=== PATIENT | female | born 1990 | race Caucasian/White ===

== ENCOUNTER 2023-01-10 15:46 | Emergency (ER) | payer MEDICAID, SELFPAY ==
[2023-01-10] VITALS (9 sets, daily range): BP systolic 128–186; BP diastolic 70–107; PULSE 110; RESP 18; TEMP 36.9; O2SAT 97–100; BMI 31.1
--- NOTE | 2023-01-10 16:13 | ED.ABDPAIN1 ---
Documented by User: Ema Her MD 01/12/23 08:43 HPI - Abdominal Pain General Chief Complaint: Abdominal Pain Stated Complaint: abdominal pain and vomitting Time Seen by Provider: 01/10/23 16:13 Source: patient Mode of arrival: walk-in Limitations: no limitations History of Present Illness HPI narrative: pt presents emergency department complaining of abdominal pain. Patient states she's had pain in her left upper quadrant for 3 days. She has been vomiting as dry heaving and is unable to keep anything down. She denies any hematemesis. She denies any diarrhea. She has Zofran at home took one this morning and is still nauseated. She denies any fever, chills, cough, chest pain, shortness of breath. She denies any flank pain, hematuria, dysuria. She denies any vaginal bleeding, discharge. Patient states it feels like when she had to have her gallbladder taken out. She called her primary care doctor and was told to come to the emergency department. She denies any trauma. Related Data Home Medications Medication Instructions Recorded Confirmed cholecalciferol (vitamin D3) 25 50 mcg PO DAILY 01/10/23 01/10/23 mcg (1,000 unit) tablet escitalopram oxalate 10 mg tablet 10 mg PO DAILY 01/10/23 01/10/23 hydroxyzine HCl 25 mg tablet 25 mg PO Q6H PRN anxiety 01/10/23 01/10/23 lamotrigine 25 mg tablet 25 mg PO .hs 01/10/23 01/10/23 ondansetron 4 mg disintegrating 4 mg PO Q6H PRN nausea and vomiting 01/10/23 01/10/23 tablet oxycodone 10 mg tablet 10 mg PO Q6H PRN pain 01/10/23 01/10/23 Allergies Allergy/AdvReac Type Severity Reaction Status Date / Time codeine Allergy Intermediate Verified 01/10/23 15:53 Penicillins Allergy Intermediate Verified 01/10/23 15:53 topiramate [From Topamax] Allergy Intermediate Verified 01/10/23 15:53 Review of Systems ROS Status of ROS 10 or more systems reviewed and unremarkable except as noted in history and below PFSH PFSH Social History Smoking status: Current every day smoker Exam Narrative Exam Narrative: Nurses notes and vital signs reviewed and patient is not hypoxic. General: Nontoxic, Well-appearing and in no apparent distress. Skin: Warm, dry, no pallor noted. No Rash Head: Normocephalic, atraumatic. Neck: Supple, non-tender. Eye: Pupils are equal, round and EOMI. No scleral icterus. Ears, Nose, Mouth, and Throat: TM clear, no posterior oropharynx erythema or nasal mucosal hypertrophy, uvula is mid-line Oral mucosa is moist Cardiovascular: Regular Rate and Rhythm without murmur, gallop or rub. Respiratory: No accessory muscle use or respiratory distress. Lungs are clear to auscultation, no wheezing, rales or rhonchi Chest Wall: no tenderness Back: No midline thoracic or lumbar vertebral tenderness. No CVA tenderness Musculoskeletal: normal ROM, no calf or popliteal tenderness, no lower extremity edema/swelling GI: Abdomen is soft, non-distended. Normal bowel sounds. No masses appreciated.) Mild left upper quadrant tenderness to palpation. No rebound, guarding, or rigidity noted. Neurological: A&O x4. No cranial nerve dysfunction observed. No truncal ataxia. Moves all extremities. Sensation intact. Psychiatric: Cooperative and interactive. Normal mood and affect. Constitutional Vital Signs - 24 hr 01/10/23 15:53 01/10/23 17:21 01/10/23 17:22 Temperature 98.5 F Pulse Rate [Monitor] 110 H Respiratory Rate 18 Blood Pressure 143/87 H Blood Pressure [Left Arm] 135/99 H Pulse Oximetry 98 99 100 Oxygen Delivery Method Room Air 01/10/23 17:22 01/10/23 17:30 01/10/23 18:00 Temperature Pulse Rate [Monitor] Respiratory Rate Blood Pressure 143/87 H 134/93 H 134/70 H Blood Pressure [Left Arm] Pulse Oximetry 99 100 99 Oxygen Delivery Method 01/10/23 18:31 01/10/23 19:01 01/10/23 19:30 Temperature Pulse Rate [Monitor] Respiratory Rate Blood Pressure 186/107 H 139/78 H 148/80 H Blood Pressure [Left Arm] Pulse Oximetry 97 98 98 Oxygen Delivery Method 01/10/23 20:01 Temperature Pulse Rate [Monitor] Respiratory Rate Blood Pressure 128/77 H Blood Pressure [Left Arm] Pulse Oximetry 98 Oxygen Delivery Method Course Vital Signs Vital signs: Vital Signs Temperature 98.5 F 01/10/23 15:53 Pulse Rate 110 H 01/10/23 15:53 Respiratory Rate 18 01/10/23 15:53 Blood Pressure 135/99 H 01/10/23 15:53 Pulse Oximetry 98 01/10/23 15:53 Oxygen Delivery Method Room Air 01/10/23 15:53 Temperature 98.5 F 01/10/23 15:53 Pulse Rate 110 H 01/10/23 15:53 Respiratory Rate 18 01/10/23 15:53 Blood Pressure 128/77 H 01/10/23 20:01 Pulse Oximetry 98 01/10/23 20:01 Oxygen Delivery Method Room Air 01/10/23 15:53 MDM - Abdominal Pain MDM Narrative Medical decision making narrative: The patient had an IV established. She was given 1 L of normal saline, 4 mg of morphine, and 4mg of zofran. Labs and CT studies are pending. She is nontoxic. Lab Data Labs: Lab Results 01/10/23 01/10/23 Range/Units 16:05 16:27 WBC 9.3 (4.0-11.0) 10^3/uL RBC 4.67 (4.20-5.40) 10^6/uL Hgb 14.2 (12.0-16.0) g/dL Hct 42.9 (36.0-48.0) % MCV 91.9 (81.0-99.0) fL MCH 30.4 (26.7-34.0) pg MCHC 33.1 (29.9-35.2) g/dL RDW 13.2 (11.0-15.0) % Plt Count 290 (150-450) 10^3/uL MPV 9.1 L (9.5-13.5) fL Neut % (Auto) 72.0 (43.0-75.0) % Lymph % (Auto) 20.0 L (20.5-60.0) % [place] % (Auto) 5.1 (1.7-12.0) % Eos % (Auto) 2.3 (0.9-7.0) % Baso % (Auto) 0.3 (0.2-2.0) % Neut # (Auto) 6.7 H (1.4-6.5) 10^3/uL Lymph # (Auto) 1.9 (1.2-3.8) 10^3/uL [place] # (Auto) 0.5 (0.3-0.8) 10^3/uL Eos # (Auto) 0.2 (0.0-0.7) 10^3/uL Baso # (Auto) 0.0 (0.0-0.1) 10^3/uL Abs Immat Gran (auto) 0.03 (0.00-0.03) 10^3/uL Imm/Tot Granulo (auto) 0.3 (0.0-0.5) % Sodium 140 (136-145) mmol/L Potassium 4.1 (3.5-5.1) mmol/L Chloride 104 (98-107) mmol/L Carbon Dioxide 24.6 (21.0-32.0) mmol/L Anion Gap 15.5 BUN 21.0 H (7.0-18.0) mg/dL Creatinine 1.03 H (0.55-1.02) mg/dL Est GFR ( Amer) >60 (>=60) Est GFR (Non-Af Amer) >60 (>=60) BUN/Creatinine Ratio 20.4 Glucose 98 (74-106) mg/dL Calcium 9.5 (8.5-10.1) mg/dL Total Bilirubin 0.3 (0.2-1.0) mg/dL AST 10 L (15-37) U/L ALT 21 (14-59) U/L Alkaline Phosphatase 101 (46-116) U/L Total Protein 7.1 (6.4-8.2) g/dL Albumin 3.8 (3.4-5.0) g/dL Globulin 3.3 g/dL Albumin/Globulin Ratio 1.2 Lipase 166.0 (73.0-393.0) U/L Urine Color Yellow (YELLOW) Urine Clarity Clear (CLEAR) Urine pH 6.5 (5.0-9.0) Ur Specific [place] 1.010 (1.005-1.025) Urine Protein Negative (NEG/TRACE) mg/dL Urine Glucose (UA) Negative (NEGATIVE) mg/dL Urine Ketones Negative (NEGATIVE) mg/dL Urine Occult Blood Negative (NEGATIVE) Urine Nitrite Negative (NEGATIVE) Urine Bilirubin Negative (NEGATIVE) Urine Urobilinogen 0.2 (0.2-1.0) EU/dL Ur Leukocyte Esterase Negative (NEGATIVE) Discharge Plan Discharge Chief Complaint: Abdominal Pain Clinical Impression: Colitis, Nausea and vomiting Patient Disposition: Home, Self-Care Condition: Good Mode of Transportation: Private Vehicle Prescriptions / Home Meds: No Action cholecalciferol (vitamin D3) 25 mcg (1,000 unit) tablet 50 mcg PO DAILY escitalopram oxalate 10 mg tablet 10 mg PO DAILY hydroxyzine HCl 25 mg tablet 25 mg PO Q6H PRN (Reason: anxiety) lamotrigine 25 mg tablet 25 mg PO .hs ondansetron 4 mg tablet,disintegrating 4 mg PO Q6H PRN (Reason: nausea and vomiting) oxycodone 10 mg tablet 10 mg PO Q6H PRN (Reason: pain) Print Language: Ethiopian Instructions: Acute Nausea and Vomiting (ED), Colitis (ED) Additional Instructions: Reglan: 1 tablet every 8 hours as needed for nausea/vomiting Stand Alone Forms: Portal Instructions Referrals: DARA JIMENES [Primary Care Provider] - 1 week (follow up with your family doctor in 1-2 days. Return if vomiting not controlled) Follow Up Appointments: follow up with your family doctor in 1-2 days. Return if vomiting not controlled Discharge Date/Time: 01/10/23 21:47 Documented by User: Juan Carlos Resendiz MD 01/10/23 21:07 HPI - Abdominal Pain General Chief Complaint: Abdominal Pain Stated Complaint: abdominal pain and vomitting Time Seen by Provider: 01/10/23 16:13 Related Data Home Medications Medication Instructions Recorded Confirmed cholecalciferol (vitamin D3) 25 50 mcg PO DAILY 01/10/23 01/10/23 mcg (1,000 unit) tablet escitalopram oxalate 10 mg tablet 10 mg PO DAILY 01/10/23 01/10/23 hydroxyzine HCl 25 mg tablet 25 mg PO Q6H PRN anxiety 01/10/23 01/10/23 lamotrigine 25 mg tablet 25 mg PO .hs 01/10/23 01/10/23 ondansetron 4 mg disintegrating 4 mg PO Q6H PRN nausea and vomiting 01/10/23 01/10/23 tablet oxycodone 10 mg tablet 10 mg PO Q6H PRN pain 01/10/23 01/10/23 Allergies Allergy/AdvReac Type Severity Reaction Status Date / Time codeine Allergy Intermediate Verified 01/10/23 15:53 Penicillins Allergy Intermediate Verified 01/10/23 15:53 topiramate [From Topamax] Allergy Intermediate Verified 01/10/23 15:53 PFSH PFSH Social History Smoking status: Current every day smoker Exam Constitutional Vital Signs - 24 hr 01/10/23 15:53 01/10/23 17:21 01/10/23 17:22 Temperature 98.5 F Pulse Rate [Monitor] 110 H Respiratory Rate 18 Blood Pressure 143/87 H Blood Pressure [Left Arm] 135/99 H Pulse Oximetry 98 99 100 Oxygen Delivery Method Room Air 01/10/23 17:22 01/10/23 17:30 01/10/23 18:00 Temperature Pulse Rate [Monitor] Respiratory Rate Blood Pressure 143/87 H 134/93 H 134/70 H Blood Pressure [Left Arm] Pulse Oximetry 99 100 99 Oxygen Delivery Method 01/10/23 18:31 01/10/23 19:01 01/10/23 19:30 Temperature Pulse Rate [Monitor] Respiratory Rate Blood Pressure 186/107 H 139/78 H 148/80 H Blood Pressure [Left Arm] Pulse Oximetry 97 98 98 Oxygen Delivery Method 01/10/23 20:01 Temperature Pulse Rate [Monitor] Respiratory Rate Blood Pressure 128/77 H Blood Pressure [Left Arm] Pulse Oximetry 98 Oxygen Delivery Method Course Vital Signs Vital signs: Vital Signs Temperature 98.5 F 01/10/23 15:53 Pulse Rate 110 H 01/10/23 15:53 Respiratory Rate 18 01/10/23 15:53 Blood Pressure 135/99 H 01/10/23 15:53 Pulse Oximetry 98 01/10/23 15:53 Oxygen Delivery Method Room Air 01/10/23 15:53 Temperature 98.5 F 01/10/23 15:53 Pulse Rate 110 H 01/10/23 15:53 Respiratory Rate 18 01/10/23 15:53 Blood Pressure 128/77 H 01/10/23 20:01 Pulse Oximetry 98 01/10/23 20:01 Oxygen Delivery Method Room Air 01/10/23 15:53 MDM - Abdominal Pain Medical Records Medical records narrative: care transferred at change of shift. Patient presents with 3 day history of recurrent vomiting. CT with evidence of ? mild colitis. Patient hydrated in the department. Able to control her nausea with Reglan. discharged home to follow up with her family doctor Lab Data Labs: Lab Results 01/10/23 01/10/23 Range/Units 16:05 16:27 WBC 9.3 (4.0-11.0) 10^3/uL RBC 4.67 (4.20-5.40) 10^6/uL Hgb 14.2 (12.0-16.0) g/dL Hct 42.9 (36.0-48.0) % MCV 91.9 (81.0-99.0) fL MCH 30.4 (26.7-34.0) pg MCHC 33.1 (29.9-35.2) g/dL RDW 13.2 (11.0-15.0) % Plt Count 290 (150-450) 10^3/uL MPV 9.1 L (9.5-13.5) fL Neut % (Auto) 72.0 (43.0-75.0) % Lymph % (Auto) 20.0 L (20.5-60.0) % [place] % (Auto) 5.1 (1.7-12.0) % Eos % (Auto) 2.3 (0.9-7.0) % Baso % (Auto) 0.3 (0.2-2.0) % Neut # (Auto) 6.7 H (1.4-6.5) 10^3/uL Lymph # (Auto) 1.9 (1.2-3.8) 10^3/uL [place] # (Auto) 0.5 (0.3-0.8) 10^3/uL Eos # (Auto) 0.2 (0.0-0.7) 10^3/uL Baso # (Auto) 0.0 (0.0-0.1) 10^3/uL Abs Immat Gran (auto) 0.03 (0.00-0.03) 10^3/uL Imm/Tot Granulo (auto) 0.3 (0.0-0.5) % Sodium 140 (136-145) mmol/L Potassium 4.1 (3.5-5.1) mmol/L Chloride 104 (98-107) mmol/L Carbon Dioxide 24.6 (21.0-32.0) mmol/L Anion Gap 15.5 BUN 21.0 H (7.0-18.0) mg/dL Creatinine 1.03 H (0.55-1.02) mg/dL Est GFR ( Amer) >60 (>=60) Est GFR (Non-Af Amer) >60 (>=60) BUN/Creatinine Ratio 20.4 Glucose 98 (74-106) mg/dL Calcium 9.5 (8.5-10.1) mg/dL Total Bilirubin 0.3 (0.2-1.0) mg/dL AST 10 L (15-37) U/L ALT 21 (14-59) U/L Alkaline Phosphatase 101 (46-116) U/L Total Protein 7.1 (6.4-8.2) g/dL Albumin 3.8 (3.4-5.0) g/dL Globulin 3.3 g/dL Albumin/Globulin Ratio 1.2 Lipase 166.0 (73.0-393.0) U/L Urine Color Yellow (YELLOW) Urine Clarity Clear (CLEAR) Urine pH 6.5 (5.0-9.0) Ur Specific [place] 1.010 (1.005-1.025) Urine Protein Negative (NEG/TRACE) mg/dL Urine Glucose (UA) Negative (NEGATIVE) mg/dL Urine Ketones Negative (NEGATIVE) mg/dL Urine Occult Blood Negative (NEGATIVE) Urine Nitrite Negative (NEGATIVE) Urine Bilirubin Negative (NEGATIVE) Urine Urobilinogen 0.2 (0.2-1.0) EU/dL Ur Leukocyte Esterase Negative (NEGATIVE) Discharge Plan Discharge Chief Complaint: Abdominal Pain Clinical Impression: Colitis, Nausea and vomiting Patient Disposition: Home, Self-Care Condition: Good Mode of Transportation: Private Vehicle Prescriptions / Home Meds: No Action cholecalciferol (vitamin D3) 25 mcg (1,000 unit) tablet 50 mcg PO DAILY escitalopram oxalate 10 mg tablet 10 mg PO DAILY hydroxyzine HCl 25 mg tablet 25 mg PO Q6H PRN (Reason: anxiety) lamotrigine 25 mg tablet 25 mg PO .hs ondansetron 4 mg tablet,disintegrating 4 mg PO Q6H PRN (Reason: nausea and vomiting) oxycodone 10 mg tablet 10 mg PO Q6H PRN (Reason: pain) Print Language: Ethiopian Instructions: Acute Nausea and Vomiting (ED), Colitis (ED) Additional Instructions: Reglan: 1 tablet every 8 hours as needed for nausea/vomiting Stand Alone Forms: Portal Instructions Referrals: DARA JIMENES [Primary Care Provider] - 1 week (follow up with your family doctor in 1-2 days. Return if vomiting not controlled) Follow Up Appointments: follow up with your family doctor in 1-2 days. Return if vomiting not controlled Discharge Date/Time: 01/10/23 21:47
[2023-01-10 16:15] LABS: Bilirubin Urine NEGATIVE (NEGATIVE); Blood Urine NEGATIVE (NEGATIVE); Clarity Urine CLEAR (CLEAR); Color Urine YELLOW (YELLOW); Glucose Urine UA NEGATIVE (NEGATIVE); Ketones Urine NEGATIVE (NEGATIVE); Leukocyte Esterase Urine NEGATIVE (NEGATIVE); Nitrite Urine NEGATIVE (NEGATIVE); Protein Urine NEGATIVE (NEG/TRACE); Urobilinogen Urine 0.2 EU/dL (0.2-1.0); pH Urine 6.5 (5.0-9.0)
[2023-01-10 16:17] LABS: Urine Microscopic Indicated NO
--- NOTE | 2023-01-10 16:19 | CT_ITS ---
The [address] [address] Patient Name: IRENE MANN MRN: [id number] date: 1990 Sex: F Assigned Patient Location: ER Current Patient Location: ER Accession/Order Number: [id number] Exam Date: 01/10/2023 18:18 Report Date: 01/10/2023 19:04 At the request of: LIBORIO SELLERS Procedure: CT abdomen pelvis w con EXAM: CT scan of the abdomen and pelvis using 100 mL of IV iodinated contrast. Dose reduction technique used: Automated exposure control and/or adjustment of the mA and/or kV according to patient size and/or use of iterative reconstruction technique. REASON FOR EXAM: abd pain, vomiting COMPARISON: CT scan dated 09/19/2012 FINDINGS: Mild colonic wall thickening in the descending and sigmoid colon. Cholecystectomy. Small amount of free fluid in the pelvis. No evidence of appendicitis. No free intraperitoneal air. No dilated loops of small bowel or colon. No hydronephrosis or obstructing renal or ureteral calculi. Liver, pancreas, spleen, bilateral kidneys, and bilateral adrenal glands are otherwise unremarkable. No lymphadenopathy in the abdomen or pelvis. Remainder unremarkable. IMPRESSION: 1. Possible mild changes of colitis. 2. Otherwise, no acute abnormalities in the abdomen or pelvis. Electronically authenticated by: JM COLUNGA Date: 01/10/2023 19:04
[2023-01-10 16:39] LABS: Basophils Percent Auto 0.3 % (0.2-2.0); Eosinophils Absolute Auto 0.2 10^3/uL (0.0-0.7); Eosinophils Percent Auto 2.3 % (0.9-7.0); Hematocrit 42.9 % (36.0-48.0); Hemoglobin 14.2 g/dL (12.0-16.0); Immature Granulocytes Abs Auto 0.03 10^3/uL (0.00-0.03); Immature Granulocytes Pct Auto 0.3 % (0.0-0.5); Lymphocytes Absolute Auto 1.9 10^3/uL (1.2-3.8); Mean Corpuscular HGB Conc 33.1 g/dL (29.9-35.2); Mean Corpuscular Hemoglobin 30.4 pg (26.7-34.0); Mean Corpuscular Volume 91.9 fL (81.0-99.0); Mean Platelet Volume 9.1 fL (9.5-13.5); Monocytes Absolute Auto 0.5 10^3/uL (0.3-0.8); Monocytes Percent Auto 5.1 % (1.7-12.0); Neutrophils Absolute Auto 6.7 10^3/uL (1.4-6.5); Platelet Count 290 10^3/uL (150-450); Red Blood Count 4.67 10^6/uL (4.20-5.40); Red Cell Distribution Width 13.2 % (11.0-15.0); White Blood Count 9.3 10^3/uL (4.0-11.0)
[2023-01-10] MEDS: MORPHINE SULFATE 2 MG/ML SYRINGE 4 MG IV (16:46)
[2023-01-10] MEDS: 0.9 % SODIUM CHLORIDE 1,000 ML 999 ML IV ×2 (16:47→20:23)
[2023-01-10] MEDS: ONDANSETRON PF 4 MG/2 ML VIAL IV (16:47)
[2023-01-10 17:14] LABS: Alanine Aminotransferase 21 U/L (14-59); Albumin Globulin Ratio 1.2; Albumin Level 3.8 g/dL (3.4-5.0); Alkaline Phosphatase 101 U/L (46-116); Anion Gap 15.5; Aspartate Amino Transferase 10 U/L (15-37); BUN Creatinine Ratio 20.4; Bilirubin Total 0.3 mg/dL (0.2-1.0); Calcium 9.5 mg/dL (8.5-10.1); Carbon Dioxide 24.6 mmol/L (21.0-32.0); Chloride 104 mmol/L (98-107); Estimated GFR (African America >60 (>=60); Estimated GFR (Non-African Ame >60 (>=60); Globulin 3.3 g/dL; Glucose 98 mg/dL (74-106); Potassium 4.1 mmol/L (3.5-5.1); Sodium 140 mmol/L (136-145); Total Protein 7.1 g/dL (6.4-8.2)
[2023-01-10] MEDS: MORPHINE SULFATE 4 MG/ML VIAL (19:00)
[2023-01-10] MEDS: METOCLOPRAMIDE HCL 10 MG/2 ML VIAL IVP (20:22)
[2023-01-10] MEDS: METOCLOPRAMIDE HCL 10 MG/10 ML SOLUTION REGLAN PO (21:05)
== END 2023-01-10 21:47 | disposition home or self-care (01) ==
PROVIDERS: Emergency Medicine; Emergency Provider Internal Medicine; PCP Family Medicine
DX: K52.9 Noninfective gastroenteritis and colitis, unspecified (principal); R11.2 Nausea with vomiting, unspecified; Z79.899 Other long term (current) drug therapy
CPT/HCPCS: 36415; 74177; 80053; 81003; 83690; 85025; 96374; 96375; 99285; Q9967

== ENCOUNTER 2023-01-21 07:49 | Outpatient (OUT) | payer MEDICAID, SELFPAY ==
--- NOTE | 2023-01-21 07:54 | US_ITS ---
Patient: IRENE MANN Exam Date: 01/21/2023 : 1990 Gender:F Ordering : DR Alexander Ray . Admission #: [id number] Family : DR Fozia Amaya M.D. Order #: [id number] CLICK HERE TO VIEW EXAM RADIOLOGY REPORT PROCEDURE: US BREAST RT LIMITED COMPARISON: [facility] DIAG W CAD, 05/11/2019. INDICATIONS: Right sided breast pain N64.4 TECHNIQUE: Breast ultrasound was performed, with evaluation focusing only on specific areas of concern. FINDINGS: DIAGNOSTIC CATEGORY 0--INCOMPLETE: NEED ADDITIONAL IMAGING EVALUATION. Targeted ultrasound in the area of the patient's palpable mass and breast pain right 10 to 11 o'clock position demonstrates normal fibroglandular tissue. As the patient has had no prior mammogram since 2019, bilateral mammogram was recommended. The patient was unable to stay for this exam and informed us that she would call to reschedule RECOMMENDATIONS: ADDITIONAL MAMMOGRAPHIC VIEWS REQUIRED: BILATERAL BREASTS - PLEASE NOTE: A NORMAL ULTRASOUND EXAMINATION DOES NOT EXCLUDE THE POSSIBILITY OF BREAST CANCER. A CLINICALLY SUSPICIOUS PALPABLE LUMP SHOULD BE BIOPSIED. Dictated by: Amol Pereira MD on 01/21/2023 at 08:18 Approved by: Amol Pereira MD on 01/21/2023 at 08:26
== END 2023-01-21 07:50 ==
LOC: US 07:50
PROVIDERS: PCP Family Medicine; Visit Provider Obstetrics & Gynecology
DX: N64.4 Mastodynia (principal); N63.11 Unspecified lump in the right breast, upper outer quadrant
CPT/HCPCS: 76642

== ENCOUNTER 2023-05-21 14:37 | Emergency (ER) | payer MEDICAID, SELFPAY ==
[2023-05-21 14:41] VITALS: BP 129/91; PULSE 89; RESP 18; TEMP 36.9; O2SAT 100
--- NOTE | 2023-05-21 14:53 | ED_ITS ---
HPI - Abdominal Pain General Chief Complaint: Abdominal Pain Stated Complaint: ABDOMINAL PAIN Time Seen by Provider: 05/21/23 14:45 Mode of arrival: walk-in Limitations: no limitations History of Present Illness HPI narrative: 32-year-old female presents for a five day history of abdominal pain and vomiting. She had diarrhea but that has resolved. No fever or hematemesis or blood in her stool. The pain is severe and continuous and all over her abdomen. She's had previous hysterectomy and bilateral oophorectomy and appendectomy and cholecystectomy. Related Data Home Medications Medication Instructions Recorded Confirmed cholecalciferol (vitamin D3) 25 50 mcg PO DAILY 01/10/23 01/10/23 mcg (1,000 unit) tablet escitalopram oxalate 10 mg tablet 10 mg PO DAILY 01/10/23 01/10/23 hydroxyzine HCl 25 mg tablet 25 mg PO Q6H PRN anxiety 01/10/23 01/10/23 lamotrigine 25 mg tablet 25 mg PO .hs 01/10/23 01/10/23 ondansetron 4 mg disintegrating 4 mg PO Q6H PRN nausea and vomiting 01/10/23 01/10/23 tablet oxycodone 10 mg tablet 10 mg PO Q6H PRN pain 01/10/23 01/10/23 Previous Rx's Medication Instructions Recorded ciprofloxacin HCl 500 mg tablet 500 mg PO Q12H #20 tabs 05/21/23 (Cipro) metronidazole 500 mg tablet 500 mg PO Q8H #30 tabs 05/21/23 Allergies Allergy/AdvReac Type Severity Reaction Status Date / Time codeine Allergy Intermediate Verified 01/10/23 15:53 Penicillins Allergy Intermediate Verified 01/10/23 15:53 topiramate [From Topamax] Allergy Intermediate Verified 01/10/23 15:53 Review of Systems ROS Narrative A ten point review of systems is negative except as noted above. PFSH PFSH Social History Smoking status: Current every day smoker Exam Narrative Exam Narrative: Nurses note and vital signs reviewed and patient is not hypoxic. General: The patient appears uncomfortable Skin: Warm, dry, no pallor noted. There is no rash noted. Head: Normocephalic, atraumatic Eye: Normal conjunctiva, no drainage Ears, Nose, Mouth, and Throat: oral mucosa is moist. Nares patent. Cardiovascular: Regular Rate and Rhythm Respiratory: Patient is in no distress, no accessory muscle use, lungs are clear to auscultation, no wheezing, rales or rhonchi Back: non-tender GI: Normal bowel sounds, minimal tenderness to palpation, no masses appreciated. No rebound, guarding, or rigidity noted. Musculoskeletal: The patient has no evidence of calf tenderness, no pitting edema, symmetrical pulses noted bilaterally Neurological: A&O, normal speech Psychiatric: Cooperative Constitutional Vital Signs, click to edit/add: Last Vital Signs Temp 98.4 F 05/21/23 14:41 Pulse 78 05/21/23 15:29 Resp 22 05/21/23 15:29 BP 134/89 05/21/23 15:29 Pulse Ox 98 05/21/23 15:29 O2 Del Method Room Air 05/21/23 15:29 Course Vital Signs Vital signs: Vital Signs Temperature 98.4 F 05/21/23 14:41 Pulse Rate 89 05/21/23 14:41 Respiratory Rate 18 05/21/23 14:41 Blood Pressure 129/91 05/21/23 14:41 Pulse Oximetry 100 05/21/23 14:41 Oxygen Delivery Method Room Air 05/21/23 14:41 Temperature 98.4 F 05/21/23 14:41 Pulse Rate 78 05/21/23 15:29 Respiratory Rate 22 05/21/23 15:29 Blood Pressure 134/89 05/21/23 15:29 Pulse Oximetry 98 05/21/23 15:29 Oxygen Delivery Method Room Air 05/21/23 15:29 MDM - Abdominal Pain MDM Narrative Medical decision making narrative: WBC is normal at 9.5. CAT scan per radiologist suggests colitis still improved since January. At this point she doesn't require admission the hospital. The CBC is normal and she is not dehydrated. She states she has pain medicine and nausea medicine home but she's being prescribed Cipro and Flagyl and she'll see her doctor in a few days for follow-up. Possibility of need for colonoscopy was discussed with the patient and she'll follow up promptly. Treatment diagnosis and follow-up were discussed with the patient. Differential Diagnosis Differential diagnosis: Likely abdominal pain, constipation, diverticulitis, gastroenteritis, pancreatitis and small bowel obstruction Lab Data Attestation: I reviewed the patient's lab results. Labs: Lab Results 05/21/23 Range/Units 14:50 WBC 9.5 (4.0-11.0) 10^3/uL RBC 4.82 (4.20-5.40) 10^6/uL Hgb 14.6 (12.0-16.0) g/dL Hct 45.4 (36.0-48.0) % MCV 94.2 (81.0-99.0) fL MCH 30.3 (26.7-34.0) pg MCHC 32.2 (29.9-35.2) g/dL RDW 13.2 (11.0-15.0) % Plt Count 313 (150-450) 10^3/uL MPV 9.2 L (9.5-13.5) fL Neut % (Auto) 66.4 (43.0-75.0) % Lymph % (Auto) 25.3 (20.5-60.0) % Sterling % (Auto) 4.8 (1.7-12.0) % Eos % (Auto) 2.9 (0.9-7.0) % Baso % (Auto) 0.4 (0.2-2.0) % Neut # (Auto) 6.3 (1.4-6.5) 10^3/uL Lymph # (Auto) 2.4 (1.2-3.8) 10^3/uL Sterling # (Auto) 0.5 (0.3-0.8) 10^3/uL Eos # (Auto) 0.3 (0.0-0.7) 10^3/uL Baso # (Auto) 0.0 (0.0-0.1) 10^3/uL Abs Immat Gran (auto) 0.02 (0.00-0.03) 10^3/uL Imm/Tot Granulo (auto) 0.2 (0.0-0.5) % Sodium 137 (136-145) mmol/L Potassium 4.5 (3.5-5.1) mmol/L Chloride 103 (98-107) mmol/L Carbon Dioxide 25.4 (21.0-32.0) mmol/L Anion Gap 13.1 BUN 18.0 (7.0-18.0) mg/dL Creatinine 1.27 H (0.55-1.02) mg/dL Est GFR ( Amer) 59 L (>=60) Est GFR (Non-Af Amer) 49 L (>=60) BUN/Creatinine Ratio 14.2 Glucose 89 (74-106) mg/dL Calcium 9.3 (8.5-10.1) mg/dL Total Bilirubin 0.4 (0.2-1.0) mg/dL Direct Bilirubin 0.1 (0.0-0.2) mg/dL AST 20 (15-37) U/L ALT 29 (14-59) U/L Alkaline Phosphatase 108 (46-116) U/L Total Protein 7.5 (6.4-8.2) g/dL Albumin 4.1 (3.4-5.0) g/dL Globulin 3.4 g/dL Albumin/Globulin Ratio 1.2 Amylase 114 (25-115) U/L Lipase 43.0 (16.0-77.0) U/L Imaging Data CT scan - abdomen: Radiologist's impression: Procedure: CT abdomen pelvis w con CT abdomen pelvis w con, 05/21/2023 3:15 PM EDT, [place]001 INDICATION: diffuse abdominal pain, vomiting COMPARISON: CT from 01/10/2023. TECHNIQUE: Helical images were obtained during intravenous administration of water soluble contrast. Coronal and sagittal reconstructions were also generated. Dose reduction techniques were achieved by using automated exposure control and/or adjustment of mA and/or kV according to patient size and/or use of iterative reconstruction technique. Oral contrast: None. FINDINGS: The visualized portions of the lower thorax appear unremarkable. The liver is normal in size and attenuation. The gallbladder has been removed. The pancreas is within normal limits. The spleen appears unremarkable. The adrenal glands appear unremarkable. The kidneys and ureters are within normal limits. The vasculature appears unremarkable. There is no pathologic retroperitoneal adenopathy. The urinary bladder appears unremarkable. No pelvic mass is identified. There is no evidence of pathologic pelvic adenopathy. There is slight free fluid in the pelvis on the right. Moderate wall thickening is again seen in the sigmoid and descending colon, which appears less prominent in the proximal descending colon compared to the prior study. There is a large amount of stool throughout the colon. There are several dilated loops of proximal small bowel in the left upper quadrant, without visible transition point, suggestive of an ileus pattern. There is no evidence of pneumatosis. No significant hernia is identified. The osseous structures appear unremarkable. IMPRESSION: Moderate wall thickening is again seen in the sigmoid and descending colon which may represent colitis. This appears mildly decreased in the proximal descending colon compared to the prior study. There are several mildly dilated loops of proximal small bowel in left upper quadrant suggestive of a localized ileus. Slight pelvic ascites. Electronically authenticated by: CHAI HUANG Date: 05/21/2023 15:44 Discharge Plan Discharge Chief Complaint: Abdominal Pain Clinical Impression: Colitis Patient Disposition: Home, Self-Care Time of Disposition Decision: 16:53 Condition: Good Mode of Transportation: Private Vehicle Prescriptions / Home Meds: New ciprofloxacin HCl [Cipro] 500 mg tablet 500 mg PO Q12H Qty: 20 0RF metronidazole 500 mg tablet 500 mg PO Q8H Qty: 30 0RF No Action cholecalciferol (vitamin D3) 25 mcg (1,000 unit) tablet 50 mcg PO DAILY escitalopram oxalate 10 mg tablet 10 mg PO DAILY hydroxyzine HCl 25 mg tablet 25 mg PO Q6H PRN (Reason: anxiety) lamotrigine 25 mg tablet 25 mg PO .hs ondansetron 4 mg tablet,disintegrating 4 mg PO Q6H PRN (Reason: nausea and vomiting) oxycodone 10 mg tablet 10 mg PO Q6H PRN (Reason: pain) Instructions: Colitis (ED) Stand Alone Forms: Portal Instructions Referrals: Fozia Amaya MD [Primary Care Provider] - 1 week
[2023-05-21] MEDS: ONDANSETRON PF 4 MG/2 ML VIAL IV ×2 (15:03→16:53)
[2023-05-21 15:11] LABS: Basophils Percent Auto 0.4 % (0.2-2.0); Eosinophils Absolute Auto 0.3 10^3/uL (0.0-0.7); Eosinophils Percent Auto 2.9 % (0.9-7.0); Hematocrit 45.4 % (36.0-48.0); Hemoglobin 14.6 g/dL (12.0-16.0); Immature Granulocytes Abs Auto 0.02 10^3/uL (0.00-0.03); Immature Granulocytes Pct Auto 0.2 % (0.0-0.5); Lymphocytes Absolute Auto 2.4 10^3/uL (1.2-3.8); Lymphocytes Percent Auto 25.3 % (20.5-60.0); Mean Corpuscular HGB Conc 32.2 g/dL (29.9-35.2); Mean Corpuscular Hemoglobin 30.3 pg (26.7-34.0); Mean Corpuscular Volume 94.2 fL (81.0-99.0); Mean Platelet Volume 9.2 fL (9.5-13.5); Monocytes Absolute Auto 0.5 10^3/uL (0.3-0.8); Monocytes Percent Auto 4.8 % (1.7-12.0); Neutrophils Absolute Auto 6.3 10^3/uL (1.4-6.5); Neutrophils Percent Auto 66.4 % (43.0-75.0); Platelet Count 313 10^3/uL (150-450); Red Blood Count 4.82 10^6/uL (4.20-5.40); Red Cell Distribution Width 13.2 % (11.0-15.0); White Blood Count 9.5 10^3/uL (4.0-11.0)
[2023-05-21] MEDS: 0.9 % SODIUM CHLORIDE 1,000 ML 1000 ML IV (15:27)
[2023-05-21 15:29] VITALS: BP 134/89; PULSE 78; RESP 22; O2SAT 98
[2023-05-21 15:53] LABS: Alanine Aminotransferase 29 U/L (14-59); Albumin Globulin Ratio 1.2; Albumin Level 4.1 g/dL (3.4-5.0); Alkaline Phosphatase 108 U/L (46-116); Amylase 114 U/L (25-115); Anion Gap 13.1; Aspartate Amino Transferase 20 U/L (15-37); BUN Creatinine Ratio 14.2; Bilirubin Direct 0.1 mg/dL (0.0-0.2); Bilirubin Total 0.4 mg/dL (0.2-1.0); Calcium 9.3 mg/dL (8.5-10.1); Carbon Dioxide 25.4 mmol/L (21.0-32.0); Chloride 103 mmol/L (98-107); Estimated GFR (African America 59 (>=60); Estimated GFR (Non-African Ame 49 (>=60); Globulin 3.4 g/dL; Glucose 89 mg/dL (74-106); Potassium 4.5 mmol/L (3.5-5.1); Sodium 137 mmol/L (136-145); Total Protein 7.5 g/dL (6.4-8.2)
[2023-05-21 17:04] LABS: Bilirubin Urine NEGATIVE (NEGATIVE); Blood Urine NEGATIVE (NEGATIVE); Clarity Urine CLEAR (CLEAR); Color Urine LT. YELLOW (YELLOW); Glucose Urine UA NEGATIVE (NEGATIVE); Ketones Urine NEGATIVE (NEGATIVE); Leukocyte Esterase Urine NEGATIVE (NEGATIVE); Nitrite Urine NEGATIVE (NEGATIVE); Protein Urine NEGATIVE (NEG/TRACE); Specific Gravity Urine <=1.005 (1.005-1.025); Urobilinogen Urine 0.2 EU/dL (0.2-1.0)
[2023-05-21 17:14] VITALS: BP 110/80
[2023-05-21 17:17] LABS: WBC Urine NONE SEEN #/HPF (NONE SEEN)
[2023-05-21 17:18] LABS: Bacteria Urine TRACE #/HPF (NONE SEEN); Cast Seen? NONE SEEN #/LPF (NONE SEEN); Crystals Seen? None Seen #/HPF (None Seen); Mucus Urine NONE SEEN (NONE SEEN); RBC Urine NONE SEEN #/HPF (0-2); Squamous Epithelial Cell Urine RARE #/LPF (NONE/RARE)
== END 2023-05-21 17:16 | disposition home or self-care (01) ==
PROVIDERS: Emergency Provider Emergency Medicine; PCP Family Medicine
DX: K52.9 Noninfective gastroenteritis and colitis, unspecified (principal); Z90.710 Acquired absence of both cervix and uterus; Z90.49 Acquired absence of other specified parts of digestive tract; Z90.722 Acquired absence of ovaries, bilateral; Z79.899 Other long term (current) drug therapy; F17.210 Nicotine dependence, cigarettes, uncomplicated
CPT/HCPCS: 36415; 74177; 80048; 80076; 81001; 82150; 83690; 85025; 96361; 96374; 96376; 99285; Q9967

== ENCOUNTER 2023-06-26 13:54 | Emergency (ER) | payer MEDICAID, SELFPAY ==
[2023-06-26 14:00] VITALS: BP 130/80; PULSE 81; RESP 20; TEMP 36.8; O2SAT 98; BMI 31.1
--- NOTE | 2023-06-26 14:14 | ED.ALLEREA1 ---
HPI - Allergic Reaction General Chief complaint: Allergic Reaction Stated complaint: ALLERGIC REACTION Time Seen by Provider: 06/26/23 14:07 Source: patient Mode of arrival: walk-in Limitations: no limitations History of Present Illness HPI narrative: 32 year old female presents to the ED with c/o generalized itching, rash. Onset was a few hours ago. Denies fever, chills, SOB, oral swelling, difficulty swallowing. Denies the use of new medications, soaps, detergents, foods or other products. She took 25 mg of Benadryl approx 1 hour ago. Denies pain. Related Data Home Medications Medication Instructions Recorded Confirmed cholecalciferol (vitamin D3) 25 50 mcg PO DAILY 01/10/23 01/10/23 mcg (1,000 unit) tablet escitalopram oxalate 10 mg tablet 10 mg PO DAILY 01/10/23 01/10/23 hydroxyzine HCl 25 mg tablet 25 mg PO Q6H PRN anxiety 01/10/23 01/10/23 lamotrigine 25 mg tablet 25 mg PO .hs 01/10/23 01/10/23 ondansetron 4 mg disintegrating 4 mg PO Q6H PRN nausea and vomiting 01/10/23 01/10/23 tablet oxycodone 10 mg tablet 10 mg PO Q6H PRN pain 01/10/23 01/10/23 Previous Rx's Medication Instructions Recorded ciprofloxacin HCl 500 mg tablet 500 mg PO Q12H #20 tabs 05/21/23 (Cipro) metronidazole 500 mg tablet 500 mg PO Q8H #30 tabs 05/21/23 prednisone 10 mg tablet 10 mg PO DAILY #30 tabs 06/26/23 Allergies Allergy/AdvReac Type Severity Reaction Status Date / Time codeine Allergy Intermediate Verified 01/10/23 15:53 Penicillins Allergy Intermediate Verified 01/10/23 15:53 topiramate [From Topamax] Allergy Intermediate Verified 01/10/23 15:53 Review of Systems ROS Constitutional Denies: fever or chills Ears, nose, mouth, and throat Denies: neck pain, throat swelling or difficulty swallowing Cardiovascular Denies: chest pain or palpitations Respiratory Denies: shortness of breath, cough, wheezing or stridor Integumentary/Breast Reports: itching and redness Neurological Denies: headache or dizziness Allergic/Immunologic Denies: throat swelling, tongue swelling, facial swelling or wheezing [facility] Social History Smoking status: Heavy tobacco smoker Exam Narrative Exam Narrative: Areas of erythema noted to torso, neck, extremities. No facial swelling noted. No oral swelling noted. Pt speaking in full sentences, handling secretions well. Constitutional Vital Signs, click to edit/add: Last Vital Signs Temp 98.3 F 06/26/23 14:00 Pulse 81 06/26/23 14:00 Resp 20 06/26/23 14:00 BP 130/80 06/26/23 14:00 Pulse Ox 98 06/26/23 14:00 O2 Del Method Room Air 06/26/23 14:00 Common normals: no apparent distress and oriented x3 General appearance: cooperative HENMT Face and sinus: normal facial exam; no facial erythema and no facial edema Nose: external nose normal External ear: external ears normal Mouth: oral and palatal mucosa normal, lip normal and tongue normal; no drooling and no muffled voice Throat: posterior oropharynx normal and uvula midline Eye Common normals: conjunctivae normal and no scleral icterus Neck & C-Spine Common normals: supple Chest Chest: symmetrical chest wall rise Respiratory Common normals: normal respiratory effort Effort & inspection: able to speak in complete sentences and symmetric chest movement Auscultation: clear to auscultation bilaterally Cardio Rate: regular rate Rhythm: regular rhythm Neuro Common normals: oriented x3 Sensorium/orientation: awake and alert Speech: speech normal Gait (neuro): normal gait Course Vital Signs Vital signs: Vital Signs Temperature 98.3 F 06/26/23 14:00 Pulse Rate 81 06/26/23 14:00 Respiratory Rate 20 06/26/23 14:00 Blood Pressure 130/80 06/26/23 14:00 Pulse Oximetry 98 06/26/23 14:00 Oxygen Delivery Method Room Air 06/26/23 14:00 Temperature 98.3 F 06/26/23 14:00 Pulse Rate 81 06/26/23 14:00 Respiratory Rate 20 06/26/23 14:00 Blood Pressure 130/80 06/26/23 14:00 Pulse Oximetry 98 06/26/23 14:00 Oxygen Delivery Method Room Air 06/26/23 14:00 MDM - Allergic Reaction MDM Narrative Medical decision making narrative: She was given IM solumedrol, IM benadryl, and oral Pepcid with improvement in her sx. A prescription was provided for prednisone. Follow up with pcp for a recheck, further evaluation and treatment. Medical Records Attestation: I reviewed the patient's medical records. Discharge Plan Discharge Chief Complaint: Allergic Reaction Clinical Impression: Allergic reaction Patient Disposition: Home, Self-Care Time of Disposition Decision: 15:05 Condition: Good Mode of Transportation: Private Vehicle Prescriptions / Home Meds: New prednisone 10 mg tablet 10 mg PO DAILY Qty: 30 0RF Rx Instructions: TAKE 5 TABLETS ON DAYS 1-2, 4 TABS ON DAYS 3-4, 3 TABS ON DAYS 5-6, 2 TABS ON DAYS 7-8, 1 TAB ON DAYS 9-10. No Action cholecalciferol (vitamin D3) 25 mcg (1,000 unit) tablet 50 mcg PO DAILY escitalopram oxalate 10 mg tablet 10 mg PO DAILY hydroxyzine HCl 25 mg tablet 25 mg PO Q6H PRN (Reason: anxiety) lamotrigine 25 mg tablet 25 mg PO .hs ondansetron 4 mg tablet,disintegrating 4 mg PO Q6H PRN (Reason: nausea and vomiting) oxycodone 10 mg tablet 10 mg PO Q6H PRN (Reason: pain) ciprofloxacin HCl [Cipro] 500 mg tablet 500 mg PO Q12H Qty: 20 0RF metronidazole 500 mg tablet 500 mg PO Q8H Qty: 30 0RF Instructions: General Allergic Reaction (ED) Additional Instructions: Follow up with your family physician for a recheck, further evaluation and treatment. Return to the ER if your condition worsens. Stand Alone Forms: Portal Instructions Referrals: Fozia Amaya MD [Primary Care Provider] - 1 week Discharge Date/Time: 06/26/23 15:20
[2023-06-26] MEDS: DIPHENHYDRAMINE HCL 50 MG/ML (1ML) VIAL 25 MG IM (14:21)
[2023-06-26] MEDS: METHYLPREDNISOLONE SOD SUCC PF 125 MG/2 ML VIAL IM (14:21)
[2023-06-26] MEDS: FAMOTIDINE 20 MG TABLET 40 MG PO (14:21)
[2023-06-26 15:07] VITALS: BP 123/74; PULSE 78; O2SAT 99
== END 2023-06-26 15:20 | disposition home or self-care (01) ==
PROVIDERS: Emergency Provider Emergency Medicine; PCP Family Medicine
DX: T78.40XA Allergy, unspecified, initial encounter (principal); Z79.899 Other long term (current) drug therapy; F17.210 Nicotine dependence, cigarettes, uncomplicated
CPT/HCPCS: 96372; 99284; J2930